=== PATIENT | male | born 1945 | race Caucasian/White ===

== ENCOUNTER 2016-11-08 23:39 | Inpatient (IN) | payer MEDICARE, OTHER ==
[~2016-11-08] VITALS: Ht 180.3 cm; Wt 75.8 kg
--- NOTE | ~2016-11-08 | ECH ---
Transthoracic Echocardiography Report (TTE) Demographics Patient Name NICHOLE BECK JR Date of Study 11/09/2016 Patient Number [id number] Visit Number [id number] Date of 1945 Room Number 430 Accession Number [id number] Gender Male Age 71 year(s) Referring Stiven Gaston MD Billing Administrator Maricarmen Clarke [facility] Physician Physician Interpreting Stiven Gaston MD Paginator Physician Supervising Ordering Physician Stiven Gaston MD, MD/P Nurse [employer] Lead Conclusions Summary Technically fair exam. The estimated left ventricular ejection fraction is 65%. . Mild left ventricular hypertrophy. Diastolic assessment reveals Grade I diastolic dysfunction. There is mild to moderate aortic regurgitation by color Doppler. No other significant valvular abnormalities. The aortic root appears severely dilated. The maximum diameter measures 4.6 cm. The ascending aorta appears mildly dilated. The maximum diameter measures 3.8 cm. Procedure Type of Study TTE procedure:Echo Complete SF. Procedure Date Date: 11/09/2016 Start: 09:16 AM Technical Quality: Fair due to poor acoustical window. Indications:Chest pain and Elevated Troponin. Appropriate Use Criteria: 9 Height: 71 inches Weight: 167 pounds BSA: 1.95 m Rhythm: Within normal limits HR: 88 bpm BP: 133/72 mmHg M-Mode/2D Measurements LV Diastolic Dimension: 4.22 cm LV Systolic Dimension: 3.24 cm LV Septum Diastolic: 1.07 cm LV PW Diastolic: 1.15 cm AO Root Dimension: 4.59 cm Cardiac Output: 8.99 l/min LA Dimension: 3.27 cm Cardiac Index: 4.61 l/min*m LA volume index: 26 ml/m LVOT: 2.25 cm RV Base: 3.3 cm LVOT VTI: 25.72 cm RV Mid: 2.1 cm LV Stroke volume: 102.21 ml TAPSE: 1.3 cm LV Stroke volume index: 52.42 ml/m TDI-S': 12 cm/s Doppler Measurements AV Peak Velocity: 1.37 m/s MV Peak E-Wave: 0.44 m/s AV Peak Gradient: 7.51 mmHg MV Peak A-Wave: 0.8 m/s AV Mean Gradient: 3.75 mmHg MV E/A Ratio: 0.54 LVOT Peak Velocity: 1.18 m/s MV P1/2t: 77.3 msec AV Area (Continuity):3.72 cm AV P1/2t: 667.2 msec MV Deceleration Time: 269.4 msec MV Area (PHT): 2.85 cm PV Peak Velocity: 1.03 m/s PV Peak Gradient: 4.28 mmHg RA Area: 14.22 cm Findings Left Ventricle The left ventricle is normal in size . Mild left ventricular hypertrophy. Diastolic assessment reveals Grade I diastolic dysfunction. Right Ventricle Normal right ventricle structure and function. Left Atrium Normal left atrial size. Right Atrium Normal right atrial size. Mitral Valve Mild thickening of the mitral valve leaflets. Trivial mitral regurgitation by color Doppler. Aortic Valve Normal aortic valve structure and function. There is mild to moderate aortic regurgitation by color Doppler. Tricuspid Valve Normal tricuspid valve structure and function. Trivial tricuspid regurgitation by color Doppler. Pulmonic Valve Normal pulmonic valve structure and function. Pericardial Effusion No evidence of pericardial effusion. Miscellaneous The aortic root appears severely dilated. The maximum diameter measures 4.6 cm. The ascending aorta appears mildly dilated. The maximum diameter measures 3.8 cm. Pleural Effusion No evidence of pleural effusion. Contractility Score LV regional wall motion:(0-Non visualized 1-Normal 2-Hypokinesis 3-Akinesis 4-Dyskinesis 5-Aneurysm) Signature
[2016-11-10] MEDS ORDERED: COZAAR DPS50 MG (19:28)
[2016-11-10] MEDS ORDERED: ASA CHILDREN'S81 MG PO (19:28)
[2016-11-10] MEDS ORDERED: SYNTHROID DPS0.15 MG PO (19:29)
[2016-11-10] MEDS ORDERED: LIPITOR40 MG PO (19:29)
[2016-11-10] MEDS ORDERED: MOBIC DPS7.5 MG PO (19:29)
[2016-11-10] MEDS ORDERED: DULERA 200/58.8 GM IH (19:30)
[2016-11-10] MEDS ORDERED: HEPARIN IV (19:31)
[2016-11-10] MEDS ORDERED: SODIUM CHLORIDE IV (19:31)
[2016-11-10] MEDS ORDERED: NORMAL SALINE FL5 ML IV (19:31)
[2016-11-10] MEDS ORDERED: HEPARIN5000 UNITS IV (19:31)
[2016-11-10] MEDS ORDERED: NORMAL SALINE1000 ML IV (19:32)
--- NOTE | 2016-11-24 17:29 | HP ---
ADMIT: 11/08/2016 RM/LOC: 430 [facility] MR#: [id number] [address] [facility] [address] [place] [id number] NICHOLE BECK [address] [address] History and Physical SEX: M AGE: 71 : 1945 DATE OF SERVICE: 11/09/2016 REASON FOR ADMISSION: Acute coronary syndrome. HISTORY OF PRESENT ILLNESS: Nichole is a pleasant 71-year-old male from [place], [place] who was admitted to our hospital yesterday evening due to some new onset chest tightness and shortness of breath. It began at 5:30 p.m. while he was sitting in the chair watching television. It is associated with some lightheadedness and shortness of breath. It lasted until about 7:15 p.m. and was intermittent in nature. There were no aggravating or relieving factors, it seemed to just go away on its own around 7:15 as they were en- route to the emergency room in [place], [place]. In the emergency room, he was found to have a troponin of 0.08 and was subsequently transferred to [facility] for acute coronary syndrome. There was no ST elevation found on EKG in the emergency room. He was initiated on heparin drip per protocol and given aspirin 81 mg x2 as well as Lopressor 5 mg IV once prior to transfer. He has not had any chest pain, tightness, or increased shortness of breath since 7:15 last night. Here, he continues on heparin drip per protocol. His past cardiac history is significant for coronary artery disease with coronary artery bypass graft in 1990 for left main disease. He also about a year ago had abdominal aortic aneurysm stenting. He has been diagnosed with hypertension within the last 6 months for which he has been taking losartan. His most recent stress test in 2009 was negative and showed an ejection fraction of 65%. He does have significant cardiovascular risk factors in that he has smoked for over 40 years, greater than 1 pack per day for most of that time and only recently cutting back to about a half a pack a day for the last 3 years. He also has a significant family history of early heart disease with dad suffering from a heart attack. 2 brothers and 1 sister have cardiac disease. He also states that he has had a cousin at age 40 suddenly from cardiac problems. PAST MEDICAL HISTORY: Significant for coronary artery disease as described in the HPI, hypertension, abdominal aortic aneurysm with grafting, hyperthyroidism with thyroidectomy and subsequent thyroid hormone replacement, significant COPD, which began in the last 5 years, hyperlipidemia, and back pain. PAST SURGICAL HISTORY: Coronary artery bypass grafting in 1990, abdominal aortic aneurysm stent placement around 1 year ago per patient, inguinal hernia repair in 2009, thyroidectomy, appendectomy in childhood. ALLERGIES: NO KNOWN ALLERGIES. MEDICATIONS: Home medications include: 1. Atorvastatin 40 mg. 2. Aspirin 81 mg. 3. Losartan 100 mg. ADMIT: 11/08/2016 RM/LOC: 430 [facility] MR#: [id number] [address] [place] [id number] [place] [address] History and Physical SEX: M AGE: 71 : 1945 4. Meloxicam 15 mg. 5. Levothyroxine 150 mcg. 6. Symbicort. 7. P.r.n. medications of Ventolin, Xanax, and Fova. Since admission he has received heparin drip only. FAMILY HISTORY: Significant for heart disease in his father as well as 2 brothers and 1 sister having heart disease. The patient states that his father did have a heart attack. He also states that he has had at least 1 cousin of early cardiac at the age of 40. 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 He now keeps busy by doing work around the house. He is to his for 47 years. She is a retired nurse. He admits to consuming 4-5 cups of coffee daily, but denies use of alcohol or other illegal drugs. REVIEW OF SYSTEMS: GENERAL: Positive for fatigue. Denies fever, chills, sweats, rash, or weight loss. EYES: Denies double vision, blurred vision, cataracts, or glaucoma. ENT: Denies problems with nose, mouth or throat. Decreased hearing. PULMONARY: Positive for COPD and intermittent cough as well snoring at night. Negative for asthma, coughing up blood. GASTROINTESTINAL: Denies heartburn or difficulty swallowing. No change in bowel habits. Denies dark or bloody stools. No history of ulcers, hiatal hernia, or gallbladder or liver disease. GENITOURINARY: Denies dysuria, hematuria, nocturia, urinary tract infection. Denies history of renal insufficiency or failure. Remote history of kidney stone 1 year ago. MUSCULOSKELETAL: Denies history of arthritis or gout. Denies muscle or joint pains. ENDOCRINE: History of hypothyroidism and thyroidectomy now with thyroid hormone replacement. Negative for diabetes. HEMATOLOGIC: Denies history of anemia, easy bruising, or cancer. NEUROLOGIC: Denies dizziness, syncope, stroke, seizures or numbness or tingling. Positive for migraines. PSYCHIATRIC: Denies history of mental illness or feelings of depression. PHYSICAL EXAMINATION: VITAL SIGNS: Blood pressure 138/78, pulse 88, respirations 18, temperature 99.4, and O2 saturation 92% on room air. GENERAL: He is alert and cooperative. SKIN: [place], warm and dry. EYES: Sclerae clear. No xanthelasmas. ENT: Oral mucosa is pink and moist. No jugular venous distention or carotid bruits. LUNGS: Respirations are even and unlabored. Poor air movement. HEART: Regularly irregular. Normal S1, S2. No murmurs, rubs or gallops. ABDOMEN: Soft and nontender. No masses. MUSCULOSKELETAL: Gait is normal. ADMIT: 11/08/2016 RM/LOC: 430 [facility] MR#: [id number] [address] [place] [address] [place], [place] [address] NICHOLE BECK [address] [place] [address] History and Physical SEX: M AGE: 71 : 1945 EXTREMITIES: Peripheral pulses palpable. No clubbing, cyanosis or edema. PSYCHIATRIC: Alert and oriented. Mood and affect are appropriate. LABORATORY DATA: WBC 11.2, hemoglobin 12.5, hematocrit 38.4, and platelets 177. Sodium 140, potassium 4.5, chloride 109, bicarbonate 22, urea 18, serum creatinine 1.0, and glucose 68. Troponin at midnight on 11/08/2016, was 0.160, repeat troponin at 5:56 a.m. on 11/09/2016, is down to 0.129. IMPRESSION: 1. Acute coronary syndrome/aok-LY-eufltdzl myocardial infarction. 2. Known coronary artery disease. 3. Tobacco abuse. 4. Peripheral vascular disease. RECOMMENDATION: Nichole has a complex history of coronary artery disease. His prior coronary artery bypass grafting in 1990 was for left main disease and used 2 internal mammary artery grafts. He has high risk features and hence at this time we would suggest proceeding with coronary and graft angiography at the [facility]. Dr. Arango called to discuss this case with Dr. Lock and he is in agreement. The patient is currently stable with no cardiac symptoms. We will plan ground transfer to [facility]. It is unclear why he has not been on a beta-henrique in the past. The patient and his family are in agreement with this plan, and all questions were answered to their satisfaction. ZHOU Candelario Student / Jefferson Arango MD / modl JOB #: [id number] CC: Amadeo Saleem, Attending Physician Amadeo Saleem, Family Physician
--- NOTE | 2016-12-01 10:36 | DS ---
ADMIT: 11/08/2016 RM/LOC: 430 [facility] MR#: [id number] [address] [facility] [address] [place], [place] [address] NICHOLE BECK [address] [address] General Discharge Summary SEX: M AGE: 71 : 1945 ADMISSION DATE: 11/08/2016 DISCHARGE DATE: 11/09/2016 REASON FOR ADMISSION: Acute coronary syndrome. This is Jamia Valentine RN, scribing for Dr. Alek Saleem. FINAL DIAGNOSES: 1. Acute coronary syndrome, non-ST elevated myocardial infarction. 2. History of coronary artery disease. 3. Tobacco abuse. 4. Peripheral vascular disease. 5. History of coronary artery bypass graft. HOSPITAL COURSE: Nichole is a pleasant, 71-year-old gentleman from [place], who was transferred to [facility] due to new onset chest tightness and shortness of breath that began at home on chair while watching TV associated with lightheadedness. This was until about 0715 hours and it was intermittent, however, it did not go away, so he went to the emergency room in [place] where he was found to have elevated troponin of 0.08, and was subsequently transferred to [facility]. EKG did not show any significant ST-elevation in the ER. He was started on heparin drip per protocol as well as given aspirin and Lopressor IV times once prior to transfer. Since admission to [facility], he denied any increased shortness of breath, chest pain, or palpitations. He continued on heparin drip per protocol. LABORATORY DATA: Lab work included white blood cell count 11.2, hemoglobin 12.5, hematocrit 38.4, platelets of 177. Sodium 140, potassium 4.5, chloride 109, BUN 18, creatinine 1.0, and glucose of 68. Troponin on 11/08/2016, at around midnight was 0.160 with repeated at 05:56 a.m. at 0.129. It was discussed with the patient that given his complex history of coronary disease with prior bypass graft in 1990 for left main disease as well as two internal mammary artery grafts, he had high risk feature, so in the morning, it was suggested that proceeding with coronary angiography would be appropriate, however, it would be a better choice to have that done in [place] at [facility] where there would be a surgical backup. At time of admission evaluation, he was stable with no symptoms and patient was agreeable to this plan. He was transferred to [facility] for Dr. Hayde earl. He was transferred in stable condition. Jamia Valentine RN / Anders Saleem MD / sterling JOB #: [id number] CC: Jefferson Arango MD, Attending Physician ADMIT: 11/08/2016 RM/LOC: 430 [facility] MR#: [id number] [address] [address] [place] [address] General Discharge Summary SEX: M AGE: 71 : 1945 Amadeo Saleem, Family Physician
== END 2016-11-09 12:20 | disposition short-term general hospital (02) | DRG 282 ==
LOC: 4PCU 23:39
PROVIDERS: ADMIT Internal Medicine
DX: I21.4 Non-ST elevation (NSTEMI) myocardial infarction (principal); J44.9 Chronic obstructive pulmonary disease, unspecified; I73.9 Peripheral vascular disease, unspecified; I25.110 Atherosclerotic heart disease of native coronary artery with unstable angina pectoris; I10 Essential (primary) hypertension; F17.210 Nicotine dependence, cigarettes, uncomplicated; E89.0 Postprocedural hypothyroidism; E78.5 Hyperlipidemia, unspecified; Z79.82 Long term (current) use of aspirin; Z87.442 Personal history of urinary calculi; Z86.79 Personal history of other diseases of the circulatory system; Z95.1 Presence of aortocoronary bypass graft; Z82.49 Family history of ischemic heart disease and other diseases of the circulatory system